=== PATIENT | female | born 1945 | race American Indian/Alaskan Native ===

== ENCOUNTER 2017-02-24 08:51 | Day surgery (SDC) | payer MEDICARE ==
[~2017-02-24 08:51] MED LIST: FLAGYL 500 MG/100 ML 500 MG/100 ML BAG IV NR; MORPHINE IV PRN; NACL 0.9% 1000 ML 1,000 ML IV SCH; PEPCID PO NR; ZOFRAN IV PRN
[2017-02-24] MEDS ORDERED: XYLOCAINE MPF 2% ONE (09:55)
[2017-02-24] MEDS ORDERED: DIPRIVAN 10 MG/ML IV ONE (09:55)
[2017-02-24] MEDS ORDERED: SUBLIMAZE ONE (09:55)
[2017-02-24] MEDS ORDERED: ZOFRAN ONE ×2 (09:58→11:58)
[2017-02-24] MEDS ORDERED: DECADRON ONE ×2 (09:58→11:57)
--- NOTE | 2017-02-24 11:41 | Anesthesia Consultation ---
Anesthesia Consult and Med Hx Date of service: 02/24/17 - Airway Anesthetic Teeth Evaluation: Good ROM Head & Neck: Adequate Mental/Hyoid Distance: Adequate Intubation Access Assessment: Probably Good - Pulmonary Exam CTA: Yes - Cardiac Exam Cardiac Exam: RRR - Pre-Operative Health Status ASA Pre-Surgery Classification: ASA3 - Pulmonary Hx Smoking: No Hx Asthma: Yes (DAILY INHALERS) SOB: Yes (SOB) Hx Sleep Apnea: No (NOAH PRE SCREEN LOW RISK) - Cardiovascular System Hx Hypertension: Yes (X 10 YRS) - Hematic Hx Anemia: Yes ( CHILD ONLY) - Additional Comments Anesthesia Medical History Comments: Thoracotomy with Right lower lobe resection September 2016
[2017-02-24] MEDS ORDERED: NEO SYNEPHRINE/NS Syringe(OR USE) IV ONE (12:00)
[2017-02-24] MEDS ORDERED: FLAGYL 500 MG/100 ML 500 MG/100 ML BAG IV NR (12:00)
[2017-02-24] MEDS ORDERED: ROBINUL ONE (12:23)
--- NOTE | 2017-02-24 12:34 | Short Stay Summary ---
Short Stay Documentation Date of service: 02/24/17 - History H&P: obtained from office - Allergies and Medications Current Medications: Allergies lisinopril Allergy (Verified 02/21/17 10:27) Rash Penicillins Allergy (Verified 02/21/17 10:27) Rash apple Adverse Reaction (Verified 02/21/17 10:27) Vomiting grape Adverse Reaction (Verified 02/21/17 10:27) Vomiting pear Adverse Reaction (Verified 02/21/17 10:27) Vomiting Home Medications Medication Instructions Recorded Confirmed Last Taken Type Aspirin [Adult Low Dose Aspirin EC] 81 mg PO DAILY 02/21/17 02/21/17 Unknown History AtorvaSTATin [Lipitor] 40 mg PO QHS 02/21/17 02/21/17 Unknown History Budesoni/Formoterol 80-4.5(Nf) 2 puff INHALATION BID 02/21/17 02/21/17 Unknown History [Symbicort 80-4.5 (Nf)] Cholecalciferol Vit D3 [Vitamin D3] 1,000 unit PO QDAY 02/21/17 02/21/17 Unknown History Cyanocobalamin (Vitamin B-12) 2,500 mcg PO DAILY 02/21/17 02/21/17 Unknown History [Vitamin B12] Losartan [Cozaar] 25 mg PO QDAY 02/21/17 02/21/17 Unknown History Nebivolol HCl [Bystolic] 5 mg PO QDAY 02/21/17 02/21/17 Unknown History Keenes-3 Fatty Acids/Fish Oil [Fish 1,000 mg PO DAILY 02/21/17 02/21/17 Unknown History Oil] amLODIPine [Norvasc] 10 mg PO DAILY 02/21/17 02/21/17 Unknown History cycloSPORINE [Restasis 0.05%] 1 drop OP BID 02/21/17 02/21/17 Unknown History metFORMIN [Glucophage] 500 mg PO QDAY 02/21/17 02/21/17 Unknown History Active Medications Famotidine (Pepcid) 20 mg PO PREOP NR Stop: 02/24/17 23:50 Last Admin: 02/24/17 11:42 Dose: 20 mg Sodium Chloride (Nacl 0.9% 1000 Ml) 1,000 mls @ 75 mls/hr IV DIRECT RACQUEL Last Admin: 02/24/17 11:43 Dose: 75 mls/hr Morphine Sulfate (Morphine) 2 mg IV Q10MIN PRN PRN Reason: Pain, Moderate (4-6) Stop: 02/27/17 07:28 - Brief post op/procedure progress note Date of procedure: 02/24/17 Pre-op diagnosis: rt prox ureteral stone 8mm Post-op diagnosis: same Procedure: eswl Anesthesia: REECEA Surgeon: ISAAC MALDONADO Estimated blood loss: none Pathology: none Condition: stable - Hospital course Hospital course: percocet & post op info on chart - Disposition Condition at discharge: Stable Disposition: DC-01 TO HOME OR SELFCARE Short Stay Discharge Plan Follow up with: JULIO HART MD [Primary Care Provider] - 7 Days
--- NOTE | 2017-02-24 12:39 | Post Operative Note ---
Pre-op diagnosis: right proximal ureteral stone-8 mm Post-op diagnosis: same Procedure: Right extracorporeal shockwave lithotripsy Indications Patient is a 69-year-old female known to my service. Underwent recent CT of abdomen and pelvis and was found to have an 8 mm proximal right ureteral stone. Has a history of gallstones and degenerative joint disease. Discussed options she agreed to proceed with surgical intervention Procedure She was taken to the operative suite placed in supine position after adequate general anesthesia, her 8 mm stone was localized in 2 planes using fluoroscopy. Extracorporeal shockwave lithotripsy was administered over a maximum KV of 6 and 3000 shocks. Adequate fragmentation could be appreciated. Patient tolerated the procedure well. She was extubated taken the recovery room in stable condition. She will go home with Percocet and a strainer. And follow- up in the office Anesthesia: ALVIN Surgeon: ISAAC MALDONADO Estimated blood loss: none Pathology: none Condition: stable Disposition: PACU
--- NOTE | 2017-02-24 13:12 | Post Anesthesia Evaluation ---
- Post Anesthesia Evaluation Patient Participated: Yes Airway Patent: Yes Stable Respiratory Function: Yes Nausea/Vomiting: No Temp > 96.8F: Yes Pain Manageable: Yes Adequeate Hydration: Yes Anesthesia Complications: No Block Receding Appropriately: Not Applicable Patient on Ventilator: No
[2017-02-24 16:02] VITALS: BP 132/72
== END 2017-02-24 08:52 | disposition home or self-care (01) ==
LOC: OR 08:51
PROVIDERS: ATTEND Urology
DX: N20.1 Calculus of ureter (principal); I10 Essential (primary) hypertension; J45.909 Unspecified asthma, uncomplicated; D64.9 Anemia, unspecified; E11.9 Type 2 diabetes mellitus without complications; K21.9 Gastro-esophageal reflux disease without esophagitis; Z88.8 Allergy status to other drugs, medicaments and biological substances; Z88.0 Allergy status to penicillin; Z91.018 Allergy to other foods; Z79.82 Long term (current) use of aspirin; Z79.899 Other long term (current) drug therapy; Z79.84 Long term (current) use of oral hypoglycemic drugs; Z87.19 Personal history of other diseases of the digestive system; Z87.39 Personal history of other diseases of the musculoskeletal system and connective tissue; Z85.118 Personal history of other malignant neoplasm of bronchus and lung; Z87.448 Personal history of other diseases of urinary system; Z98.890 Other specified postprocedural states
CPT/HCPCS: 50590; 82962; J1100; J2370; J2405; J2704; J3010; J7030